=== PATIENT | female | born 1990 | race African-American/Black ===

== ENCOUNTER 2016-11-08 12:16 | Emergency (ER) | payer SELFPAY ==
[~2016-11-08] VITALS: Ht 160 cm; Wt 80.7 kg
[2016-11-08 16:35] VITALS: BP 120/80
== END 2016-11-08 17:00 | disposition home or self-care (01) ==
LOC: ED 12:16
DX: T78.01XA Anaphylactic reaction due to peanuts, initial encounter (principal); R22.0 Localized swelling, mass and lump, head; R07.89 Other chest pain; L29.9 Pruritus, unspecified; Z91.010 Allergy to peanuts; X58.XXXA Exposure to other specified factors, initial encounter
CPT/HCPCS: J0171; J1200; J2405; J2930; J3490